=== PATIENT | female | born 1965 | race Caucasian/White ===

== ENCOUNTER 2017-03-22 11:49 | Emergency (ER) | payer OTHER ==
[~2017-03-22] VITALS: Ht 162.6 cm; Wt 70.0 kg
--- NOTE | 2017-03-22 12:12 | PD ---
HPI . "I think I had a seizure" Chief Complaint: Neuro Symptoms/ Deficits Time Seen by Provider: 12:11 Travel History International Travel<30 days: No Contact w/Intl Traveler<30days: No Traveled to known affect area: No History of Present Illness HPI 52-year-old female with history of chronic pain due to back problems, insomnia, hyperlipidemia, Sjgren, and GERD here with complaints of possibly having a seizure. Patient tells me that she has 2 family members in particular that suffer from some strange sort of seizure disorder and she thinks she has the same problem. Patient tells me that yesterday she was lying on her couch when all of a sudden she felt a dull jolt of electricity shoot through her body. At the same time she became paralyzed for 10-15 minutes and says she was consciously aware of all of her surroundings and everything that was going on. She tells me that she tried yelling out for help to her , but he did not hear her and she thinks that her voice may have been muffled. After approximately 10-15 minutes, all of patient's symptoms resolved. She felt the need to have a bowel movement approximately 10 minutes later, which she thinks was also related to this event. She goes on to tell me that she thinks she had some right arm weakness, that is now resolved. She does not have any more symptoms from this event. She suffers from chronic pain and states her pain is at baseline. She did try to reach out to her primary care provider, who told her to come to the emergency department. At this present time she denies any type of numbness, tingling, paralysis, headache, chest pain, nausea, vomiting, diaphoresis or shortness of breath. However when checking her vital signs, her O2 saturation was noted to be 90% and patient goes on to tell me she's been experiencing intermittent shortness of breath for the past several months. She tells me she gets extremely short of breath with exertion. PFSH Past Medical History High Cholesterol: Yes GERD: Yes Social History Tobacco Use: Yes Review of Systems General / Constitutional: No: Fever Eyes: No: Visual changes HENT: No: Headaches Cardiovascular: No: Chest Pain or Discomfort Respiratory: Positive: Shortness of Breath Gastrointestinal: No: Abdominal Pain Genitourinary: No: Dysuria Musculoskeletal: No: Pain Skin: No Rash Neurologic: No: Weakness Psychiatric: No: Depression Endocrine: No: Polydipsia Hematologic/Lymphatic: No: Easy Bruising Physical Exam Narrative GENERAL: AAO x 3, no acute distress, Well-nourished, well-developed patient. SKIN: Warm and dry. No visible rashes or bruising. HEAD: Normocephalic and atraumatic. EYES: No scleral icterus. No injection or drainage. EOM intact, PERRLA ENT: No nasal drainage noted. Mucous membranes pink. Airway patent. Oropharynx normal on examination. NECK: Supple, trachea midline. No JVD. CARDIOVASCULAR: Regular rate and rhythm without murmurs, gallops, or rubs. RESPIRATORY: Breath sounds equally diminished bilaterally. No accessory muscle use. No rhonchi or rales. No wheezing GASTROINTESTINAL: Abdomen soft, non-tender, nondistended. EXTREMITIES: No cyanosis or edema. BACK: Nontender without obvious deformity. No CVA tenderness. NEURO: CN II-12 intact, stove fitter strength normal b/l, UE and LE 5/5, no focal deficits PSYCH: AAO x 3, normal affect. Data Data Last Documented VS Vital Signs Date Time Temp Pulse Resp B/P Pulse Ox O2 Delivery O2 Flow Rate FiO2 03/22/17 14:18 77 18 106/66 98 Nasal Cannula 2 Orders Basic Metabolic Panel (Bmp) (03/22/17 12:12) Ct Brain W/O Iv Contrast(Rout) (03/22/17 12:12) Chest, Single Ap (03/22/17 ) D-Dimer (03/22/17 12:27) Oxygen Administration (03/22/17 12:27) Ct Pulmonary Angiogram (03/22/17 13:23) Iv Access Insert/Monitor (03/22/17 13:25) Iohexol 350 Inj (Omnipaque 350 Inj) (03/22/17 13:49) Labs Laboratory Tests Test 03/22/17 12:30 D-Dimer Quantitative (PE/DVT) 0.74 MG/L FEU Sodium Level 142 MEQ/L Potassium Level 3.9 MEQ/L Chloride Level 109 MEQ/L Carbon Dioxide Level 27.6 MEQ/L Anion Gap 5 MEQ/L Blood Urea Nitrogen 12 MG/DL Creatinine 0.57 MG/DL Estimat Glomerular Filtration 111 ML/MIN Rate Random Glucose 96 MG/DL Calcium Level 8.9 MG/DL [facility] Medical Decision Making Medical Screen Exam Complete: Yes Emergency Medical Condition: Yes Medical Record Reviewed: Yes Differential Diagnosis TIA, seizure, Dion paralysis, PE, COPD, Narrative Course 52-year-old female here with complaints of possible seizure yesterday. Patient had some out of sort paralysis episode. I have done a full head to toe examination and there are no gross abnormalities on exam except for diminished breath sounds bilaterally, which I believe are related to smoking history. I have ordered electrolytes and CT of the brain. With her complaints of shortness of breath I have also ordered a chest x-ray and d-dimer. D dimer elevated: CTA ordered. Last Impressions CT Angiography 03/22/17 1323 Signed Impressions: Service Date/Time: Wednesday, March 22, 2017 13:42 - CONCLUSION: 1. No evidence of pulmonary artery embolism to the subsegmental level. 2. Mild to moderate upper lobe predominant paraseptal emphysema with coalescing groundglass opacities in lower lobes bilaterally. Although this may reflect atelectasis, differential considerations include aspiration and less likely pneumonia in the appropriate clinical setting. 3. 6 mm solid nodule in the left lower lobe posteriorly. Consider CT examination in 6 months to document stability per 2017 Fleischner guidelines. 4. Nonspecific right hilar adenopathy. Eran Funes MD Head CT 03/22/17 1212 Signed Impressions: Service Date/Time: Wednesday, March 22, 2017 13:38 - CONCLUSION: 1. No acute intracranial abnormality. Eran Funes MD Chest X-Ray 03/22/17 0000 Signed Impressions: Service Date/Time: Wednesday, March 22, 2017 12:59 - CONCLUSION: 1. Mild basilar airspace disease. Enrique Vegas MD Laboratory Tests Test 03/22/17 12:30 D-Dimer Quantitative (PE/DVT) 0.74 MG/L FEU Sodium Level 142 MEQ/L Potassium Level 3.9 MEQ/L Chloride Level 109 MEQ/L Carbon Dioxide Level 27.6 MEQ/L Anion Gap 5 MEQ/L Blood Urea Nitrogen 12 MG/DL Creatinine 0.57 MG/DL Estimat Glomerular Filtration 111 ML/MIN Rate Random Glucose 96 MG/DL Calcium Level 8.9 MG/DL I do not suspect Pneumonia or infectious cause of sob. She is afebrile and has no symptoms consistent with such. CTA shows some emphysema. Also shows pulmonary nodule, which I recommend f/u with PCP. I have discussed with patient. Her brain CT normal. I have discussed all of the results with the patient. She will f/u with her PCP. I discussed that there are no meds that I recommend at this time and she can continue her home medications. In regards to her episode of acute paralysis, I recommend outpatient f/u. I have discussed with her. Case discussed with Dr. Pride. Patient verbalized understanding of instructions, questions were answered, and thanked me for their care. I advised them if their condition worsens, please return to the nearest emergency room for further care. Diagnosis Primary Impression: Pulmonary nodule Patient Instructions: General Instructions Additional Instructions: You have a pulmonary nodule, please have this followed up with her primary care provider in 6 months. Disposition: 01 DISCHARGE HOME Condition: Stable Ifeoma Talamantes Mar 22, 2017 12:11
[2017-03-22 13:03] LABS: BICARBONATE 27.6 MEQ/L (21.0-32.0); POTASSIUM 3.9 MEQ/L (3.5-5.1)
[2017-03-22] MEDS ORDERED: IOHEXOL 350 MG/ML 10 ML VIAL (for RAD DIAG) IV ONE (13:49)
--- NOTE | 2017-03-22 14:01 | RADRPT ---
EXAM DATE/TIME: 03/22/2017 13:42 [facility] COMPARISON: No previous studies available for comparison. INDICATIONS : Shortness of breath for months. IV CONTRAST: 80 cc Omnipaque 350 (iohexol) IV RADIATION DOSE: 22.99 CTDIvol (mGy) MEDICAL HISTORY : None SURGICAL HISTORY : None. ENCOUNTER: Initial ACUITY: 3 months PAIN SCALE: 0/10 LOCATION: Bilateral chest TECHNIQUE: Volumetric scanning of the chest was performed using a pulmonary embolism protocol MIP images were re constructed. Using automated exposure control and adjustment of the mA and/or kV according to patien t size, radiation dose was kept as low as reasonably achievable to obtain optimal diagnostic quality images. DICOM format image data is available electronically for review and comparison. FINDINGS: PULMONARY ARTERIES: No filling defects are seen in the pulmonary arteries through the segmental level. LUNGS: Mild to moderate upper lobe predominant paraseptal emphysema. Coalescing groundglass opacities in the lower lobes bilaterally. Small 3 mm calcified granuloma in the right lung apex. 6 mm oblong solid no dule in the left lower lobe posteriorly. PLEURAE: There is no pleural thickening or pleural effusion. MEDIASTINUM: 1.8 x 1.3 cm right hilar node. Subcentimeter mediastinal nodes do not be CT size criteria. Heart is g rossly unremarkable. No significant pericardial effusion. MUSCULOSKELETAL: Within normal limits for patient age. MISCELLANEOUS: The visualized upper abdominal organs demonstrate no acute abnormality. CONCLUSION: 1. No evidence of pulmonary artery embolism to the subsegmental level. 2. Mild to moderate upper lobe predominant paraseptal emphysema with coalescing groundglass opacities in lower lobes bilaterally. Although this may reflect atelectasis, differential considerations inclu de aspiration and less likely pneumonia in the appropriate clinical setting. 3. 6 mm solid nodule in the left lower lobe posteriorly. Consider CT examination in 6 months to docum ent stability per 2017 Fleischner guidelines. 4. Nonspecific right hilar adenopathy. Eran Funes MD on March 22, 2017 at 13:49 Board Certified Radiologist. This report was verified electronically.
--- NOTE | 2017-03-22 14:10 | RADRPT ---
EXAM DATE/TIME: 03/22/2017 13:38 [facility] COMPARISON: No previous studies available for comparison. INDICATIONS : Seizures yesterday. RADIATION DOSE: 53.77 CTDIvol (mGy) MEDICAL HISTORY : None SURGICAL HISTORY : None. ENCOUNTER: Initial ACUITY: 1 day PAIN SCALE: 0/10 LOCATION: cranial TECHNIQUE: Multiple contiguous axial images were obtained of the head. Using automated exposure control and adj ustment of the mA and/or kV according to patient size, radiation dose was kept as low as reasonably a chievable to obtain optimal diagnostic quality images. DICOM format image data is available electro nically for review and comparison. FINDINGS: CEREBRUM: The ventricles are normal for age. No evidence of midline shift, mass lesion, hemorrhage or acute in farction. No extra-axial fluid collections are seen. POSTERIOR FOSSA: The cerebellum and brainstem are intact. The 4th ventricle is midline. The cerebellopontine angle i s unremarkable. EXTRACRANIAL: The visualized portion of the orbits is intact. SKULL: The calvaria is intact. No evidence of skull fracture. CONCLUSION: 1. No acute intracranial abnormality. Eran Funes MD on March 22, 2017 at 13:59 Board Certified Radiologist. This report was verified electronically.
--- NOTE | 2017-03-22 14:14 | RADRPT ---
EXAM DATE/TIME: 03/22/2017 12:59 [facility] COMPARISON: No previous studies available for comparison. INDICATIONS : Patient states short of breath and had a seizure last night. MEDICAL HISTORY : None. SURGICAL HISTORY : None. ENCOUNTER: Initial ACUITY: 1 day PAIN SCORE: 0/10 LOCATION: Bilateral chest FINDINGS: A single view of the chest demonstrates mild basilar airspace disease. No effusion. No pneumothorax. Heart size mildly enlarged. CONCLUSION: 1. Mild basilar airspace disease. Enrique Vegas MD on March 22, 2017 at 14:10 Board Certified Radiologist. This report was verified electronically.
[2017-03-22 14:18] VITALS: BP 106/66; PULSE 77; RESP 18; O2SAT 98
== END 2017-03-22 14:50 | disposition home or self-care (01) ==
LOC: NEPC 11:49
DX: R91.1 Solitary pulmonary nodule (principal); J43.9 Emphysema, unspecified; R29.5 Transient paralysis; R06.02 Shortness of breath; G47.00 Insomnia, unspecified; E78.5 Hyperlipidemia, unspecified; Z72.0 Tobacco use; Z87.19 Personal history of other diseases of the digestive system; Z87.39 Personal history of other diseases of the musculoskeletal system and connective tissue
CPT/HCPCS: 70450; 71010; 71275; 80048; 85379; 99285; Q9967

== ENCOUNTER → 2017-04-22 | Outpatient (CLI) | payer OTHER ==
[2017-04-22 08:59] LABS: BLOOD GAS BASE EXCESS 1.8 mmol/L (-2-2); BLOOD GAS CARBOXYHEMOGLOBIN 9.8 % (0-4); BLOOD GAS HCO3 26 mmol/L (22-26); BLOOD GAS METHEMOGLOBIN 1.8 % (0-2); BLOOD GAS OXYGEN CONTENT 14.3 Vol % (12.0-20.0); BLOOD GAS PCO2 46 mmHG (38-42); BLOOD GAS PO2 68 mmHG (61-120); BLOOD GAS TOTAL HGB 12.4 G/DL (12.0-16.0); CRITICAL VALUE YES; DRAW SITE RT RADIAL; FIO2 21 %; NUMBER OF ARTERIAL PUNCTURES 1; OXYGEN DEVICE ROOM AIR; STAT NO; TEMP CORR TO 98.6; ULNAR PULSE PRESENT
[2017-04-22 09:00] LABS: BLOOD GAS O2 HGB SATURATION 82 % (90-100)
--- NOTE | 2017-04-23 09:11 | RSPPFT ---
DATE OF PROCEDURE: 04/22/17 COMMENTS: Spirometry shows FVC of 2.1 at 61% of predicted, FEV1 of 1.7 at 60%, FEV1/FVC ratio is normal. Flow is normal at FEF 25, FEF 50 and decreased at FEF 75 and FEF 25-75. There is no response after bronchodilator treatment. Room air arterial blood gases show pH of 7.38, PCO2 of 46, PO2 of 68, BiCarb of 26 and O2 Saturation at 82%. 6-minute walk test shows no-desaturation. IMPRESSION: 1. Mild obstructive lung disease. 2. No response to bronchodilator treatment. 3. Blood gases show presence of hypoxia. 4. 6-minute walk test show no de-saturation.
== END ==
LOC: PHRSP 08:30
PROVIDERS: ATTEND Specialist
DX: J44.9 Chronic obstructive pulmonary disease, unspecified (principal)
CPT/HCPCS: 36600; 82805; 94060; 94620

== ENCOUNTER 2017-05-16 13:41 | Emergency (ER) | payer OTHER ==
[~2017-05-16] VITALS: Ht 170.2 cm; Wt 83.6 kg
[2017-05-16 13:45] VITALS: BP 128/68; PULSE 64; RESP 16; TEMP 98.2; O2SAT 94
[2017-05-16] MEDS ORDERED: SODIUM CHLORIDE 0.9% FLUSH 10 ML FLUSH IVF PRN (14:00)
[2017-05-16] MEDS ORDERED: methylPREDNISolone SOD SUCC 125 MG/2 ML VIAL IVP ONE (14:00)
--- NOTE | 2017-05-16 14:05 | PD ---
HPI Chief Complaint: Respiratory Symptoms Time Seen by Provider: 13:50 Travel History International Travel<30 days: No Contact w/Intl Traveler<30days: No Traveled to known affect area: No History of Present Illness HPI The patient is a 52-year-old female who presents to the emergency department for shortness of breath. The patient notes a 1 month history of increasing shortness of breath which has significantly progressed over the last several days. The patient was recently diagnosed with COPD and is followed by her cupola operator, Dr. Walters. The patient states she does have a history of tobacco use, last cigarette was one and a half hours prior to arrival. The patient states she was only recently diagnosed with COPD. She does note a productive cough producing brown sputum, subjective fevers with a measured temperature 100.1 at home. She denies any chest pain, nausea, vomiting, or abdominal pain. 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 Whitman as well as a pain interventionalist. The patient's symptoms are moderate, there are no current alleviating or exacerbating factors. She denies any history congestive heart failure, pulmonary embolism, or DVT. PFSH Past Medical History High Cholesterol: Yes GERD: Yes Respiratory: Yes (copd) ?: Not Past Surgical History Hysterectomy: Yes Social History Tobacco Use: Yes Allergies-Medications (Allergen,Severity, Reaction): Coded Allergies: No Known Allergies (Unverified , 05/16/17) Reported Meds & Prescriptions Reported Meds & Active Scripts Active Reported Naprosyn (Naproxen) 500 Mg Tab 500 Mg PO BID Pilocarpine 5 Mg Tab 5 Mg PO Q8HR Morphine ER (Morphine Sulfate) 30 Mg Tab 30 Mg PO Q8H Cymbalta DR (Duloxetine HCl) 30 Mg Capdr 30 Mg PO HS Cymbalta DR (Duloxetine HCl) 60 Mg Capdr 60 Mg PO DAILY Gabapentin 600 Mg Tab 1,200 Mg PO TID Omeprazole 20 Mg Tab 20 Mg PO DAILY Trazodone (Trazodone HCl) 100 Mg Tablet 200 Mg PO HS Review of Systems Except as stated in HPI: all other systems reviewed are Neg General / Constitutional: No: Fever Cardiovascular: No: Chest Pain or Discomfort Respiratory: Positive: Cough, Shortness of Breath Gastrointestinal: No: Nausea, Vomiting, Abdominal Pain Musculoskeletal: Positive: Pain (chronic pain) Physical Exam Narrative GENERAL: Awake, alert, 52-year-old female who appears her stated age and is in no obvious respiratory distress. SKIN: Focused skin assessment warm/dry. HEAD: Atraumatic. Normocephalic. EYES: No injection or drainage. ENT: No nasal bleeding or discharge. Mucous membranes pink and moist. NECK: Trachea midline. No JVD. CARDIOVASCULAR: Regular rate and rhythm. No murmur appreciated. RESPIRATORY: No accessory muscle use. Diminished breath sounds in the upper lobes bilateral with prolonged expiratory phase. GASTROINTESTINAL: Abdomen soft, non-tender, nondistended. MUSCULOSKELETAL: No obvious deformities. No clubbing. No cyanosis. No edema. NEUROLOGICAL: Awake and alert. No obvious cranial nerve deficits. Motor grossly within normal limits. Normal speech. PSYCHIATRIC: Flat affect. Data Data Last Documented VS Vital Signs Date Time Temp Pulse Resp B/P Pulse Ox O2 Delivery O2 Flow Rate FiO2 05/16/17 14:41 80 20 113/50 96 Room Air 05/16/17 13:45 98.2 Orders Complete Blood Count With Diff (05/16/17 13:59) Comprehensive Metabolic Panel (05/16/17 13:59) B-Type Natriuretic Peptide (05/16/17 13:59) Magnesium (Mg) (05/16/17 13:59) Ckmb (Isoenzyme) Profile (05/16/17 13:59) Troponin I (05/16/17 13:59) Iv Access Insert/Monitor (05/16/17 13:59) Electrocardiogram (05/16/17 13:59) Ecg Monitoring (05/16/17 13:59) Oximetry (05/16/17 13:59) Oxygen Administration (05/16/17 13:59) Chest, Single Ap (05/16/17 13:59) Sodium Chloride 0.9% Flush (Ns Flush) (05/16/17 14:00) Methylprednisolone So Succ Inj (Solumedr (05/16/17 14:00) Albuterol-Ipratropium Neb (Duoneb Neb) (05/16/17 14:00) Labs Laboratory Tests Test 05/16/17 14:10 White Blood Count 11.2 TH/MM3 Red Blood Count 3.80 MIL/MM3 Hemoglobin 12.7 GM/DL Hematocrit 38.3 % Mean Corpuscular Volume 100.7 FL Mean Corpuscular Hemoglobin 33.5 PG Mean Corpuscular Hemoglobin 33.2 % Concent Red Cell Distribution Width 14.7 % Platelet Count 158 TH/MM3 Mean Platelet Volume 8.8 FL Neutrophils (%) (Auto) 76.8 % Lymphocytes (%) (Auto) 13.9 % Monocytes (%) (Auto) 6.3 % Eosinophils (%) (Auto) 0.9 % Basophils (%) (Auto) 2.1 % Neutrophils # (Auto) 8.6 TH/MM3 Lymphocytes # (Auto) 1.6 TH/MM3 Monocytes # (Auto) 0.7 TH/MM3 Eosinophils # (Auto) 0.1 TH/MM3 Basophils # (Auto) 0.2 TH/MM3 CBC Comment DIFF FINAL Differential Comment Sodium Level 140 MEQ/L Potassium Level 4.3 MEQ/L Chloride Level 108 MEQ/L Carbon Dioxide Level 26.9 MEQ/L Anion Gap 5 MEQ/L Blood Urea Nitrogen 15 MG/DL Creatinine 0.66 MG/DL Estimat Glomerular Filtration 94 ML/MIN Rate Random Glucose 96 MG/DL Calcium Level 8.6 MG/DL Magnesium Level 1.6 MG/DL Total Bilirubin 0.5 MG/DL Aspartate Amino Transf 30 U/L (AST/SGOT) Alanine Aminotransferase 19 U/L (ALT/SGPT) Alkaline Phosphatase 73 U/L Total Creatine Kinase 91 U/L Troponin I LESS THAN 0.02 NG/ML B-Type Natriuretic Peptide 4 PG/ML Total Protein 7.2 GM/DL Albumin 3.9 GM/DL MDM Medical Decision Making Medical Screen Exam Complete: Yes Emergency Medical Condition: Yes Medical Record Reviewed: Yes Interpretation(s) Last Impressions Chest X-Ray 05/16/17 1359 Signed Impressions: Service Date/Time: , May 16, 2017 14:04 - CONCLUSION: No acute disease. Alexandro Mahmood MD Laboratory Tests Test 05/16/17 14:10 White Blood Count 11.2 TH/MM3 Red Blood Count 3.80 MIL/MM3 Hemoglobin 12.7 GM/DL Hematocrit 38.3 % Mean Corpuscular Volume 100.7 FL Mean Corpuscular Hemoglobin 33.5 PG Mean Corpuscular Hemoglobin 33.2 % Concent Red Cell Distribution Width 14.7 % Platelet Count 158 TH/MM3 Mean Platelet Volume 8.8 FL Neutrophils (%) (Auto) 76.8 % Lymphocytes (%) (Auto) 13.9 % Monocytes (%) (Auto) 6.3 % Eosinophils (%) (Auto) 0.9 % Basophils (%) (Auto) 2.1 % Neutrophils # (Auto) 8.6 TH/MM3 Lymphocytes # (Auto) 1.6 TH/MM3 Monocytes # (Auto) 0.7 TH/MM3 Eosinophils # (Auto) 0.1 TH/MM3 Basophils # (Auto) 0.2 TH/MM3 CBC Comment DIFF FINAL Differential Comment Sodium Level 140 MEQ/L Potassium Level 4.3 MEQ/L Chloride Level 108 MEQ/L Carbon Dioxide Level 26.9 MEQ/L Anion Gap 5 MEQ/L Blood Urea Nitrogen 15 MG/DL Creatinine 0.66 MG/DL Estimat Glomerular Filtration 94 ML/MIN Rate Random Glucose 96 MG/DL Calcium Level 8.6 MG/DL Magnesium Level 1.6 MG/DL Total Bilirubin 0.5 MG/DL Aspartate Amino Transf 30 U/L (AST/SGOT) Alanine Aminotransferase 19 U/L (ALT/SGPT) Alkaline Phosphatase 73 U/L Total Creatine Kinase 91 U/L Troponin I LESS THAN 0.02 NG/ML B-Type Natriuretic Peptide 4 PG/ML Total Protein 7.2 GM/DL Albumin 3.9 GM/DL Differential Diagnosis Differential diagnosis includes COPD exacerbation, bronchitis, pulmonary embolism, acute coronary syndrome, pleural effusion, interstitial lung disease, pneumonia, medication side effect. Narrative Course IV was established, labs are drawn and sent, and the patient was placed on cardiac telemetry monitoring and continuous pulse oximetry monitoring. EKG was ordered and interpreted. Chest x-ray was obtained. The patient was administered Solu-Medrol 125 mg intravenously and duo nebs 3. I reviewed the patient's EMR, she recently had pulmonary function testing performed by her cupola operator which reveals COPD. The patient also had a CT pulmonary angiogram performed earlier this year which revealed pulmonary nodule and some right hilar adenopathy but no evidence of pulmonary embolism. The patient's chest x-rays unremarkable, no acute disease. BNP is 4, troponin is less than 0.02, electrolytes are unremarkable. After duo nebs the patient's heart rate was in the 80s, O2 sats 96%, blood pressure 113/50. The patient was reevaluated at 2:46 PM. The patient's symptoms have improved. The patient is stable for outpatient follow-up with her primary physician and cupola operator. The patient will be provided a copy of her labs and x-ray results at discharge. Diagnosis Primary Impression: COPD exacerbation Additional Impression: Bronchitis Patient Instructions: General Instructions Additional Instructions: Medications as directed. Please provide the patient a copy of her x-ray results and lab results at discharge. Follow-up with your cupola operator and primary physician. Smoking cessation is encouraged. Med/Other Pt SpecificInfo: Prescription(s) given Scripts Albuterol 18 GM Inh (Ventolin Hfa 18 GM Inh)90 Mcg/Act Aer2 Puff INH Q4H PRN ( SHORTNESS OF BREATH) #1 INHALER Ref 0 Prov:Bobo Ambrosio MD 05/16/17 Azithromycin (Zithromax Z-Mark)250 Mg [id number] Mg PO DIRECTED #1 DSPK Ref 0 500 MG (2 tabs) day 1, then 1 tab days 2-5. Prov:Bobo Ambrosio MD 05/16/17 Prednisone (Deltasone)20 Mg Tab40 Mg PO DAILY 5 Days Ref 0 Prov:Bobo Ambrosio MD 05/16/17 Disposition: DISCHARGE HOME Condition: Stable Bobo Ambrosio MD May 16, 2017 14:05
[2017-05-16] MEDS: RESP: ALBUTEROL 2.5 MG/IPRATROPIUM 0.5 MG NEB (SCH) INH ×2 (14:10→14:12)
--- NOTE | 2017-05-16 14:23 | RADRPT ---
EXAM DATE/TIME: 05/16/2017 14:04 [facility] COMPARISON: CHEST SINGLE AP, March 22, 2017, 12:59. INDICATIONS : Short of breath for two weeks. Smoker. MEDICAL HISTORY : Chronic obstructive pulmonary disease. Emphysema. SURGICAL HISTORY : None. ENCOUNTER: Initial ACUITY: 2 weeks PAIN SCORE: 0/10 LOCATION: Bilateral chest FINDINGS: A single view of the chest demonstrates the lungs to be symmetrically aerated without evidence of mas s, infiltrate or effusion. The cardiomediastinal contours are unremarkable. Osseous structures are intact. CONCLUSION: No acute disease. Alexandro Mahmood MD on May 16, 2017 at 14:15 Board Certified Radiologist. This report was verified electronically.
[2017-05-16 14:25] LABS: AUTOMATED NEUTROPHIL # 8.6 TH/MM3 (1.8-7.7); BASOPHIL # 0.2 TH/MM3 (0-0.2); BASOPHIL % 2.1 % (0.0-2.0); EOSINOPHIL # 0.1 TH/MM3 (0-0.4); EOSINOPHIL % 0.9 % (0.0-4.0); HEMATOCRIT 38.3 % (35.0-46.0); LYMPH % 13.9 % (9.0-44.0); LYMPHOCYTE # 1.6 TH/MM3 (1.0-4.8); MEAN CELL VOLUME 100.7 FL (80.0-100.0); MEAN CORPUSCULAR HEMOGLOBIN 33.5 PG (27.0-34.0); MEAN CORPUSCULAR HGB CONC 33.2 % (32.0-36.0); MONO % 6.3 % (0.0-8.0); NEUT % 76.8 % (16.0-70.0); PLATELET COUNT 158 TH/MM3 (150-450); RED CELL DISTRIBUTION WIDTH 14.7 % (11.6-17.2); WHITE BLOOD COUNT 11.2 TH/MM3 (4.0-11.0)
[2017-05-16 14:27] LABS: CHLORIDE 108 MEQ/L (98-107); POTASSIUM 4.3 MEQ/L (3.5-5.1); SODIUM (NA) 140 MEQ/L (136-145)
[2017-05-16 14:30] VITALS: RESP 20; O2SAT 94
[2017-05-16 14:30] LABS: ANION GAP 5 MEQ/L (5-15); BICARBONATE 26.9 MEQ/L (21.0-32.0); BLOOD UREA NITROGEN 15 MG/DL (7-18); HEMO FLAGS DIFF FINAL; MAGNESIUM 1.6 MG/DL (1.5-2.5)
[2017-05-16 14:33] LABS: ALT (GPT) 19 U/L (10-53); AST (GOT) 30 U/L (15-37); GLOMERULAR FILTRATION RATE 94 ML/MIN (>89)
[2017-05-16 14:35] LABS: TOTAL BILIRUBIN ADULT 0.5 MG/DL (0.2-1.0)
[2017-05-16] MEDS ORDERED: GABA600T PO (14:35)
[2017-05-16] MEDS ORDERED: CYMB30CA PO (14:35)
[2017-05-16] MEDS ORDERED: CYMB60CA PO (14:35)
[2017-05-16] MEDS ORDERED: NAPR500 PO (14:35)
[2017-05-16] MEDS ORDERED: PILO5TAB3 PO (14:35)
[2017-05-16] MEDS ORDERED: MORP1TAB25 PO (14:35)
[2017-05-16] MEDS ORDERED: TRAZ100T6 PO (14:35)
[2017-05-16] MEDS ORDERED: OMEP20TA PO (14:35)
[2017-05-16 14:36] LABS: ALKALINE PHOSPHATASE 73 U/L (45-117)
[2017-05-16 14:41] VITALS: BP 113/50; PULSE 80; RESP 20; O2SAT 96
[2017-05-16 14:43] LABS: CREATINE KINASE 91 U/L (26-192)
[2017-05-16] MEDS ORDERED: PRED-503 PO (14:53)
[2017-05-16] MEDS ORDERED: VENTAER INH (14:53)
[2017-05-16] MEDS ORDERED: ZITHTAB PO (14:53)
--- NOTE | 2017-05-17 14:39 | EKG ---
Date Performed: 05/16/2017 Time Performed: 14:57:21 PTAGE: 52 years EKG: Sinus rhythm NONSPECIFIC T-WAVE ABNORMALITY BORDERLINE ECG NO PREVIOUS TRACING DOCTOR: Mario Holder Interpretating Date/Time 05/17/2017 14:35:42
== END 2017-05-16 15:19 | disposition home or self-care (01) ==
LOC: PHED 13:41
DX: J44.1 Chronic obstructive pulmonary disease with (acute) exacerbation (principal); F17.210 Nicotine dependence, cigarettes, uncomplicated; Z79.899 Other long term (current) drug therapy
CPT/HCPCS: 71010; 80053; 82550; 83735; 83880; 84484; 85025; 93005; 94640; 94664; 96374; 99285; J2930